=== PATIENT | female | born 1935 | race Caucasian/White ===

== ENCOUNTER 2016-10-27 15:01 | Inpatient (IN) | payer MEDICARE, OTHER ==
[~2016-10-27] VITALS: Ht 167.6 cm; Wt 72.6 kg
[2016-10-27 03:15] VITALS: BP 106/71
[2016-10-27 15:56] VITALS: BP 106/71
[2016-10-27] MEDS ORDERED: MAGNESIUM HYDROXIDE 30 ML UDC PO PRN (17:00)
[2016-10-27] MEDS ORDERED: MAG HYDROX/AL HYDROX/SIMETH 30 ML UDC PO PRN (17:00)
[2016-10-27] MEDS ORDERED: Z GUARD REMEDY 2 OZ OINT TP PRN (17:00)
[2016-10-27] MEDS ORDERED: HYDROCODONE/APAP 5/325MG 1 EACH TABLET PO PRN (17:00)
[2016-10-27] MEDS ORDERED: ZOLPIDEM TARTRATE 5 MG TABLET PO PRN (17:00)
[2016-10-27] MEDS ORDERED: ONDANSETRON HCL/PF 4 MG/2 ML VIAL IVP PRN (17:00)
[2016-10-27 17:53] LABS: BASOPHILS # (AUTO) 0.1 /CMM (0.0-0.2); BASOPHILS % (AUTO) 0.7 % (0.0-2.0); DIFF TOTAL % 100 %; EOSINOPHILS # (AUTO) 0.6 /CMM (0.0-0.7); EOSINOPHILS % (AUTO) 7.8 % (0.0-6.0); HEMATOCRIT 39 % (33-45); HEMOGLOBIN 12.5 g/dL (11.5-14.8); LYMPHOCYTES # (AUTO) 2.3 /CMM (0.8-4.8); LYMPHOCYTES % (AUTO) 28.2 % (20.0-44.0); MEAN CORPUSCULAR HEMOGLOBIN 31 PG (26.0-33.0); MEAN CORPUSCULAR HGB CONC 32 g/dl (31.0-36.0); MEAN CORPUSCULAR VOLUME 95 fL (82-100); MONOCYTES % (AUTO) 12.6 % (2.0-12.0); NEUTROPHILS # (AUTO) 4.2 /CMM (1.8-8.9); NEUTROPHILS % (AUTO) 50.7 % (43.0-81.0); PLATELET COUNT (AUTO) 268 /CMM (150-450); WHITE BLOOD COUNT (AUTO) 8.2 K/uL (4.3-11.0)
[2016-10-27 18:03] LABS: CALCIUM, SERUM 8.9 mg/dL (8.5-10.1); POTASSIUM 4.1 mmol/L (3.5-5.1)
[2016-10-27 18:17] LABS: ALBUMIN 3.6 g/dL (3.4-5.0); BILIRUBIN,TOTAL 0.3 mg/dL (0.2-1.0); TOTAL PROTEIN, SERUM 7.2 g/dL (6.4-8.2)
[2016-10-27] MEDS ORDERED: CHOL100040 PO (18:28)
[2016-10-27] MEDS ORDERED: MEMA10PO MC (18:28)
[2016-10-27] MEDS ORDERED: MULT1TAB73 PO (18:28)
[2016-10-27] MEDS ORDERED: DOCU-170 PO (18:28)
[2016-10-27] MEDS ORDERED: LEVO25TA7 PO (18:28)
[2016-10-27] MEDS ORDERED: RANI300C PO (18:28)
[2016-10-27] MEDS ORDERED: ATOR10TA PO (18:28)
[2016-10-27] MEDS ORDERED: GABA-532 PO (18:28)
[2016-10-27] MEDS ORDERED: VENL150C2 PO (18:28)
[2016-10-27] MEDS ORDERED: ASPI325T2 PO (18:29)
[2016-10-27 20:00] VITALS: BP 108/70
[2016-10-28 06:45] LABS: THYROID STIMULATING HORMONE 3.425 uIU/mL (0.358-3.74)
[2016-10-28 07:26] LABS: *RAPID PLASMA REAGIN QUAL Non Reactive (Non Reactive)
[2016-10-28] MEDS ORDERED: PANTOPRAZOLE 40 MG TABLET.DR PO SCH (07:30)
[2016-10-28 08:00] VITALS: BP 120/70
[2016-10-28 08:11] LABS: VIT D, 25-HYDROXY 54.5 ng/mL (30.0-100.0)
[2016-10-28] MEDS: CHOLECALCIFEROL 1,000 UNIT TABLET (VIT D3) PO SCH (08:25)
[2016-10-28] MEDS: MULTIVITAMINS,THERAPEUTIC 1 UDTAB TABLET PO SCH (08:25)
[2016-10-28] MEDS: VENLAFAXINE XR 150 MG CAP.SR.24H PO SCH (08:25)
[2016-10-28] MEDS: DOCUSATE SODIUM 100 MG CAPSULE PO SCH (08:25)
[2016-10-28] MEDS: GABAPENTIN 100 MG CAPSULE PO SCH ×2 (08:25→17:43)
[2016-10-28] MEDS: LEVOTHYROXINE SODIUM 25 MCG TABLET PO SCH (08:25)
[2016-10-28] MEDS: FAMOTIDINE (20 MG) 20 MG TABLET PO SCH (08:25)
[2016-10-28] MEDS: ASPIRIN 325 MG TABLET PO SCH (08:25)
[2016-10-28 16:00] VITALS: BP 107/76
[2016-10-28] MEDS: ATORVASTATIN 10 MG TABLET PO SCH (17:44)
[2016-10-28] MEDS: MEMANTINE HCL 5 MG TABLET PO SCH (17:44)
[2016-10-28 20:25] VITALS: BP 116/66
[2016-10-29 08:00] VITALS: BP 105/53
[2016-10-29] MEDS: VENLAFAXINE XR 150 MG CAP.SR.24H PO SCH (08:49)
[2016-10-29] MEDS: LEVOTHYROXINE SODIUM 25 MCG TABLET PO SCH (08:49)
[2016-10-29] MEDS: ASPIRIN 325 MG TABLET PO SCH (08:49)
[2016-10-29] MEDS: GABAPENTIN 100 MG CAPSULE PO SCH ×2 (08:49→17:08)
[2016-10-29] MEDS: FAMOTIDINE (20 MG) 20 MG TABLET PO SCH (08:49)
[2016-10-29] MEDS: CHOLECALCIFEROL 1,000 UNIT TABLET (VIT D3) PO SCH (08:49)
[2016-10-29] MEDS: DOCUSATE SODIUM 100 MG CAPSULE PO SCH (08:49)
[2016-10-29] MEDS: MULTIVITAMINS,THERAPEUTIC 1 UDTAB TABLET PO SCH (08:49)
[2016-10-29] MEDS: MEMANTINE HCL 5 MG TABLET PO SCH ×2 (08:50→17:08)
[2016-10-29 16:00] VITALS: BP 115/63
[2016-10-29] MEDS: ATORVASTATIN 10 MG TABLET PO SCH (17:08)
[2016-10-29 20:00] VITALS: BP 110/69
[2016-10-30 08:00] VITALS: BP 113/74
[2016-10-30] MEDS: ASPIRIN 325 MG TABLET PO SCH (08:50)
[2016-10-30] MEDS: GABAPENTIN 100 MG CAPSULE PO SCH ×2 (08:51→17:11)
[2016-10-30] MEDS: FAMOTIDINE (20 MG) 20 MG TABLET PO SCH (08:51)
[2016-10-30] MEDS: DOCUSATE SODIUM 100 MG CAPSULE PO SCH (08:51)
[2016-10-30] MEDS: VENLAFAXINE XR 150 MG CAP.SR.24H PO SCH (08:51)
[2016-10-30] MEDS: MEMANTINE HCL 5 MG TABLET PO SCH ×2 (08:51→17:11)
[2016-10-30] MEDS: MULTIVITAMINS,THERAPEUTIC 1 UDTAB TABLET PO SCH (08:51)
[2016-10-30] MEDS: LEVOTHYROXINE SODIUM 25 MCG TABLET PO SCH (08:51)
[2016-10-30] MEDS: CHOLECALCIFEROL 1,000 UNIT TABLET (VIT D3) PO SCH (08:51)
[2016-10-30 16:00] VITALS: BP 98/61
[2016-10-30 16:04] VITALS: BP 95/61
[2016-10-30] MEDS: ATORVASTATIN 10 MG TABLET PO SCH (17:11)
[2016-10-30] MEDS: ACETAMINOPHEN 325 MG TABLET PO PRN (18:51)
[2016-10-30 20:00] VITALS: BP 101/60
[2016-10-31 08:00] VITALS: BP 113/59
[2016-10-31] MEDS: GABAPENTIN 100 MG CAPSULE PO SCH (09:20)
[2016-10-31] MEDS: ACETAMINOPHEN 325 MG TABLET PO PRN (09:20)
[2016-10-31] MEDS: MEMANTINE HCL 5 MG TABLET PO SCH (09:21)
[2016-10-31] MEDS: MULTIVITAMINS,THERAPEUTIC 1 UDTAB TABLET PO SCH (09:21)
[2016-10-31] MEDS: FAMOTIDINE (20 MG) 20 MG TABLET PO SCH (09:21)
[2016-10-31] MEDS: VENLAFAXINE XR 150 MG CAP.SR.24H PO SCH (09:21)
[2016-10-31] MEDS: CHOLECALCIFEROL 1,000 UNIT TABLET (VIT D3) PO SCH (09:21)
[2016-10-31] MEDS: ASPIRIN 325 MG TABLET PO SCH (09:21)
[2016-10-31] MEDS: DOCUSATE SODIUM 100 MG CAPSULE PO SCH (09:22)
[2016-10-31] MEDS: LEVOTHYROXINE SODIUM 25 MCG TABLET PO SCH (09:22)
== END 2016-10-31 14:45 | DRG 57 ==
LOC: MEDSG2 15:01
PROVIDERS: ADMIT Family Medicine; ATTEND Family Medicine
DX: I69.998 Other sequelae following unspecified cerebrovascular disease (principal); G82.20 Paraplegia, unspecified; I69.354 Hemiplegia and hemiparesis following cerebral infarction affecting left non-dominant side; E87.0 Hyperosmolality and hypernatremia; R62.7 Adult failure to thrive; F01.50 Vascular dementia, unspecified severity, without behavioral disturbance, psychotic disturbance, mood disturbance, and anxiety; Z87.440 Personal history of urinary (tract) infections; Z90.81 Acquired absence of spleen; E03.9 Hypothyroidism, unspecified; K25.9 Gastric ulcer, unspecified as acute or chronic, without hemorrhage or perforation; K59.00 Constipation, unspecified; Z96.642 Presence of left artificial hip joint; Z75.1 Person awaiting admission to adequate facility elsewhere; Z87.11 Personal history of peptic ulcer disease; Z87.81 Personal history of (healed) traumatic fracture; Z87.891 Personal history of nicotine dependence; Z99.3 Dependence on wheelchair
CPT/HCPCS: 36415; 80053-TC; 80061-TC; 82306; 82746; 83735-TC; 84100-TC; 84443-TC; 85025-TC; 86592; 87081-TC; 97001-TC; 97003-TC